=== PATIENT | female | born 1975 | race Two or more races ===

== ENCOUNTER 2017-03-18 19:37 | Inpatient (IN) | payer SELFPAY ==
[~2017-03-18] VITALS: Ht 165.1 cm; Wt 106.4 kg
[2017-03-18] MEDS ORDERED: NITROGLYCERIN SUBLINGUAL 0.4 MG BOTTLE OF 25. SL ONE (20:24)
[2017-03-18] MEDS ORDERED: IV NORMAL SALINE 1000ML BAG 1,000 ML IV SCH (20:30)
[2017-03-18] MEDS ORDERED: fentaNYL PF VIAL 100 MCG/2 ML VIAL IV PRN ×2 (20:30→21:00)
[2017-03-18] MEDS ORDERED: NITROGLYCERIN SUBLINGUAL 0.4 MG BOTTLE OF 25. SL PRN (20:30)
[2017-03-18 20:37] LABS: BASO % 0 % (0-3); EOS % 2 % (0-3); HEMATOCRIT 39.9 % (36.0-47.0); LYMPH # 3.9 x10^3/uL (1.0-4.8); LYMPH % 33 % (24-48); MEAN CORPUSCULAR HEMOGLOBIN 28 pg (25-35); MEAN CORPUSCULAR HGB CONC 33 g/dL (31-37); MEAN CORPUSCULAR VOLUME 85 fL (79-100); MONO % 5 % (0-9); NEUT % 60 % (31-73); PLATELET COUNT 257 x10^3/uL (140-400); RED BLOOD COUNT 4.71 x10^6/uL (3.50-5.40); RED CELL DISTRIBUTION WIDTH 14.4 % (11.5-14.5); WHITE BLOOD COUNT 11.8 x10^3/uL (4.0-11.0)
--- NOTE | 2017-03-18 20:43 | PHYS DOC ---
Past Medical History Past Medical History: Diabetes-Type II, Other Additional Past Medical Histor: "heart is weak", but hasnt f/u with clinic in ; "head always hurts a lot" Past Surgical History: Additional Past Surgical Histo: R inguinal hernia Alcohol Use: None Drug Use: None Adult General Chief Complaint Chief Complaint: CHEST PAIN HPI HPI Patient is a 41 year old female who presents with complaint of chest pain. Patient states that she has had symptoms off and on over the past few days but started having persistent symptoms approximately 1 hour ago prior to arrival. Patient describes the pain currently as squeezing and pressure in the middle of her chest. Patient also states that she is having pain along the left side of her neck. Patient has history of type 2 diabetes mellitus. Patient states that she had been evaluated one year ago at the doctor's office in [place] though she is unable to remember where she was seen. She states that she was told that she had "heart problems" but states that she did not follow-up as she was instructed to have this checked. Patient denies any fevers, diaphoresis, or shortness of breath. Patient admits to family history of myocardial infarction, stating her mother had a heart attack at the age of 42. The patient has not taken any medications to help with her symptoms at this time. Patient states that she has had associated increase in fatigue over the past several months and does not know what has caused this. Review of Systems Review of Systems Constitutional: Denies fever or chills [] Eyes: Denies change in visual acuity, redness, or eye pain [] HENT: Denies nasal congestion or sore throat [] Respiratory: Denies cough or shortness of breath [] Cardiovascular: Chest pain[] GI: Denies abdominal pain, nausea, vomiting, bloody stools or diarrhea [] : Denies dysuria or hematuria [] Musculoskeletal: Denies back pain or joint pain [] Integument: Denies rash or skin lesions [] Neurologic: Denies headache, focal weakness or sensory changes [] Current Medications Current Medications Current Medications Medications (Trade) Dose Ordered Sig/Ja Start Time Stop Time Status Last Admin Dose Admin Aspirin (Children'S Aspirin) 324 mg 1X ONCE 03/18/17 21:00 03/18/17 21:01 03/18/17 20:25 324 MG Fentanyl Citrate (Fentanyl 2ml Vial) 50 mcg PRN Q15MIN PRN 03/18/17 20:30 03/19/17 20:29 Nitroglycerin (Nitrostat) 0.4 mg PRN Q5MIN PRN 03/18/17 20:30 03/19/17 20:29 Sodium Chloride 1,000 ml @ 100 mls/hr Q10H 03/18/17 20:30 03/19/17 06:29 03/18/17 20:49 100 MLS/HR Allergies Allergies Allergies Coded Allergies Type Severity Reaction Last Updated Verified No Known Drug Allergies 03/18/17 No Physical Exam Physical Exam Constitutional: Alert, obese, afebrile, appears in mild to moderate discomfort. [] HENT: Normocephalic, atraumatic, bilateral external ears normal, oropharynx moist, no oral exudates, nose normal. [] Eyes: PERRLA, EOMI, conjunctiva normal, no discharge. [] Neck: Normal range of motion, no tenderness, supple, no stridor. [] Cardiovascular:Heart rate regular rhythm, no murmur [] Lungs & Thorax: Bilateral breath sounds clear to auscultation [] Abdomen: Bowel sounds normal, soft, no tenderness, no masses, no pulsatile masses. [] Skin: Warm, dry, no erythema, no rash. [] Back: No tenderness, no CVA tenderness. [] Extremities: No tenderness, no cyanosis, no clubbing, ROM intact, no edema. [] Neurologic: Alert and oriented X 3, normal motor function, normal sensory function, no focal deficits noted. [] Current Patient Data Vital Signs Vital Signs Date Time Temp Pulse Resp B/P (MAP) Pulse Ox O2 Delivery O2 Flow Rate FiO2 03/18/17 20:01 66 17 146/69 (94) Room Air 03/18/17 19:47 98.4 98 98.4 Lab Values Laboratory Tests Test 03/18/17 20:10 03/18/17 20:32 White Blood Count 11.8 x10^3/uL (4.0-11.0) H Red Blood Count 4.71 x10^6/uL (3.50-5.40) Hemoglobin 13.0 g/dL (12.0-15.5) Hematocrit 39.9 % (36.0-47.0) Mean Corpuscular Volume 85 fL (79-100) Mean Corpuscular Hemoglobin 28 pg (25-35) Mean Corpuscular Hemoglobin Concent 33 g/dL (31-37) Red Cell Distribution Width 14.4 % (11.5-14.5) Platelet Count 257 x10^3/uL (140-400) Neutrophils (%) (Auto) 60 % (31-73) Lymphocytes (%) (Auto) 33 % (24-48) Monocytes (%) (Auto) 5 % (0-9) Eosinophils (%) (Auto) 2 % (0-3) Basophils (%) (Auto) 0 % (0-3) Neutrophils # (Auto) 7.1 x10^3uL (1.8-7.7) Lymphocytes # (Auto) 3.9 x10^3/uL (1.0-4.8) Monocytes # (Auto) 0.6 x10^3/uL (0.0-1.1) Eosinophils # (Auto) 0.2 x10^3/uL (0.0-0.7) Basophils # (Auto) 0.0 x10^3/uL (0.0-0.2) Sodium Level 137 mmol/L (136-145) Potassium Level 4.1 mmol/L (3.5-5.1) Chloride Level 98 mmol/L (98-107) Carbon Dioxide Level 33 mmol/L (21-32) H Anion Gap 6 (6-14) 15 mmol/L (6-14) H Blood Urea Nitrogen 17 mg/dL (7-20) Creatinine 0.7 mg/dL (0.6-1.0) Estimated GFR (Cockcroft-Gault) 91.3 BUN/Creatinine Ratio 24 (6-20) H Glucose Level 226 mg/dL (70-99) H 224 mg/dL (70-99) H Calcium Level 9.5 mg/dL (8.5-10.1) Magnesium Level 2.1 mg/dL (1.8-2.4) Total Bilirubin 0.7 mg/dL (0.2-1.0) Aspartate Amino Transferase (AST) 66 U/L (15-37) H Alanine Aminotransferase (ALT) 95 U/L (14-59) H Alkaline Phosphatase 116 U/L (46-116) Total Protein 7.5 g/dL (6.4-8.2) Albumin 3.6 g/dL (3.4-5.0) Albumin/Globulin Ratio 0.9 (1.0-1.7) L POC Hemoglobin 13.9 g/dL (12-15) POC Hematocrit 41 % (36-40) H POC Sodium 138 mmol/L (135-145) POC Potassium 3.9 mmol/L (3.5-5.0) POC Chloride 97 mmol/L (98-110) L POC Total CO2 31 mmol/L (23-32) POC Blood Urea Nitrogen 16 mg/dL (8-26) POC Creatinine 0.8 mg/dL (0.5-1.4) POC Ionized Calcium (Doyle) 1.19 mmol/L (1.13-1.32) Laboratory Tests 03/18/17 20:10 Laboratory Tests 03/18/17 20:10 03/18/17 20:32 EKG EKG Interpreted by me: Heart rate 71, sinus rhythm, leftward axis, no acute ST/T- wave abnormalities present[] Radiology/Procedures Radiology/Procedures One view AP chest x-ray interpreted by me: No infiltrates, no effusions, normal cardiac silhouette.[] Course & Med Decision Making Course & Med Decision Making Pertinent Labs and Imaging studies reviewed. (See chart for details) Heart score is 4. The patient was treated with aspirin and given nitroglycerin with improvement in pain. The patient carries a moderate risk for acute cardiac event and will need admission to the hospital for further workup. I spoke with Dr. Wang who accepted care patient in hospital. A consult was placed to Dr. Varghese of cardiology to follow patient in hospital. Dragon Disclaimer Dragon Disclaimer This electronic medical record was generated, in whole or in part, using a voice recognition dictation system. 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
[2017-03-18 20:45] LABS: POTASSIUM ISTAT 3.9 mmol/L (3.5-5.0)
[2017-03-18 20:51] LABS: ALBUMIN 3.6 g/dL (3.4-5.0); ALBUMIN/GLOBULIN RATIO 0.9 (1.0-1.7); CALCIUM 9.5 mg/dL (8.5-10.1); CREATININE 0.7 mg/dL (0.6-1.0); GFR 91.3; POTASSIUM 4.1 mmol/L (3.5-5.1); TOTAL BILIRUBIN 0.7 mg/dL (0.2-1.0); TOTAL PROTEIN 7.5 g/dL (6.4-8.2)
[2017-03-18] MEDS: IV NORMAL SALINE 1000ML BAG 1,000 ML IV SCH (20:57)
[2017-03-18] MEDS ORDERED: ONDANSETRON PF 4 MG/2 ML VIAL. IV PRN (21:00)
[2017-03-18] MEDS ORDERED: ASPIRIN CHEWABLE 81 MG TABLET. PO ONE (21:00)
[2017-03-18 21:04] LABS: CREATINE KINASE 73 U/L (26-192)
[2017-03-18 21:05] LABS: CKMB MASS < 0.5 ng/mL (0.0-3.6)
[2017-03-18 22:02] LABS: BILIRUBIN,URINE NEGATIVE (NEG); GLUCOSE,URINE 250 mg/dL (NEG); NITRITE,URINE NEGATIVE (NEG); PROTEIN,URINE NEGATIVE (NEG-TRACE)
[2017-03-18 22:08] LABS: BACTERIA,URINE 0 /HPF (0-FEW); RBC,URINE OCC /HPF (0-2); SQUAMOUS EPITHELIAL CELL,UR MOD /LPF
[2017-03-18 22:30] VITALS: BP 130/65
[2017-03-19 03:00] VITALS: BP 114/56
[2017-03-19] MEDS: IV NORMAL SALINE 1000ML BAG 1,000 ML IV SCH (03:47)
[2017-03-19 05:16] LABS: BASO % 0 % (0-3); EOS % 2 % (0-3); HEMATOCRIT 37.6 % (36.0-47.0); HEMOGLOBIN 12.5 g/dL (12.0-15.5); LYMPH # 4.4 x10^3/uL (1.0-4.8); LYMPH % 38 % (24-48); MEAN CORPUSCULAR HEMOGLOBIN 28 pg (25-35); MEAN CORPUSCULAR HGB CONC 33 g/dL (31-37); MEAN CORPUSCULAR VOLUME 84 fL (79-100); MONO % 6 % (0-9); NEUT % 54 % (31-73); PLATELET COUNT 233 x10^3/uL (140-400); RED BLOOD COUNT 4.45 x10^6/uL (3.50-5.40); RED CELL DISTRIBUTION WIDTH 14.5 % (11.5-14.5); WHITE BLOOD COUNT 11.6 x10^3/uL (4.0-11.0)
[2017-03-19 05:58] LABS: CALCIUM 9.2 mg/dL (8.5-10.1); CREATININE 0.6 mg/dL (0.6-1.0); GFR 109.1; POTASSIUM 3.5 mmol/L (3.5-5.1)
[2017-03-19 07:30] VITALS: BP 139/67
--- NOTE | 2017-03-19 07:52 | PDOC2 ---
ELLA CHILD ARTIST AGENT 03/19/17 0752: CARDIAC CONSULT DATE OF CONSULT Date of Consult DATE: 03/19/17 TIME: 07:50 REASON FOR CONSULT Reason for Consult: Chest pain REFERRING PHYSICIAN Referring Physician: Dr. Mcbride SOURCE Source: Chart review, Patient HISTORY OF PRESENT ILLNESS HISTORY OF PRESENT ILLNESS This is a 41 yo female who presented with complaints of chest pain. Patient reports pain start yesterday evening while cooking. Located in her central chest. Describes as squeezing in nature. Associated with shortness of breath and nausea. Swan like she could faint so she came into the ED for further evaluation and treatment. Denies any palpitations, dizziness, or diaphoresis. Pain worsened by pressing on her central chest. Resolved upon arrival with no occurrence overnight. Does have a history of HTN and diabetes, although she does not take any medications or check her blood sugars. Troponin series normal-AMI ruled out. EKG without significant acute changes. BS noted in the 200 range. PAST MEDICAL HISTORY Cardiovascular: HTN Pulmonary: No pertinent hx GI: GERD Heme/Onc: No pertinent hx Hepatobiliary: No pertinent hx Psych: No pertinent hx Rheumatologic: No pertinent hx Infectious disease: No pertinent hx ENT: No pertinent hx Renal/: No pertinent hx Endocrine: Diabetes Dermatology: No pertinent hx PAST SURGICAL HISTORY Past Surgical History: Hernia Repair FAMILY HISTORY Family History: Hypertension, Other (grandmother with a "sick heart") SOCIAL HISTORY Smoke: No ALCOHOL: none Drugs: None Lives: with Family CURRENT MEDICATIONS CURRENT MEDICATIONS Current Medications Medications (Trade) Dose Ordered Sig/Ja Route PRN Reason Start Time Stop Time Status Last Admin Dose Admin Aspirin (Children'S Aspirin) 324 mg 1X ONCE PO 03/18/17 21:00 03/18/17 21:01 DC 03/18/17 20:25 Sodium Chloride 1,000 ml @ 100 mls/hr Q10H IV 03/18/17 20:30 03/19/17 06:29 DC 03/18/17 20:49 Sodium Chloride 1,000 ml @ 125 mls/hr Q8H IV 03/18/17 20:57 03/19/17 20:56 03/19/17 03:47 ALLERGIES ALLERGIES: Coded Allergies: No Known Drug Allergies (Unverified , 03/18/17) ROS Review of System 14 point ROS conducted with pertinent positives noted above in HPI. PHYSICAL EXAM General: Alert, Oriented X3, Cooperative, No acute distress HEENT: Atraumatic, Mucous membr. moist/pink Lungs: Other (central chest tenderness upon palpation) Heart: Regular rate, Normal S1, Normal S2, No murmurs Abdomen: Soft, No tenderness Extremities: No edema, Normal pulses Skin: No significant lesion Neuro: Normal speech, Sensation intact Psych/Mental Status: Mental status NL, Mood NL MUSCULOSKELETAL: Full range of motion without pain VITALS VITALS Vital Signs Date Time Temp Pulse Resp B/P (MAP) Pulse Ox O2 Delivery O2 Flow Rate FiO2 03/19/17 03:00 98.4 64 18 114/56 (75) 97 Room Air 98.4 LABS Lab: Laboratory Tests Test 03/18/17 20:10 03/18/17 20:32 03/18/17 21:52 03/18/17 23:04 White Blood Count 11.8 x10^3/uL (4.0-11.0) Red Blood Count 4.71 x10^6/uL (3.50-5.40) Hemoglobin 13.0 g/dL (12.0-15.5) Hematocrit 39.9 % (36.0-47.0) Mean Corpuscular Volume 85 fL (79-100) Mean Corpuscular Hemoglobin 28 pg (25-35) Mean Corpuscular Hemoglobin Concent 33 g/dL (31-37) Red Cell Distribution Width 14.4 % (11.5-14.5) Platelet Count 257 x10^3/uL (140-400) Neutrophils (%) (Auto) 60 % (31-73) Lymphocytes (%) (Auto) 33 % (24-48) Monocytes (%) (Auto) 5 % (0-9) Eosinophils (%) (Auto) 2 % (0-3) Basophils (%) (Auto) 0 % (0-3) Neutrophils # (Auto) 7.1 x10^3uL (1.8-7.7) Lymphocytes # (Auto) 3.9 x10^3/uL (1.0-4.8) Monocytes # (Auto) 0.6 x10^3/uL (0.0-1.1) Eosinophils # (Auto) 0.2 x10^3/uL (0.0-0.7) Basophils # (Auto) 0.0 x10^3/uL (0.0-0.2) Sodium Level 137 mmol/L (136-145) Potassium Level 4.1 mmol/L (3.5-5.1) Chloride Level 98 mmol/L (98-107) Carbon Dioxide Level 33 mmol/L (21-32) Anion Gap 6 (6-14) 15 mmol/L (6-14) Blood Urea Nitrogen 17 mg/dL (7-20) Creatinine 0.7 mg/dL (0.6-1.0) Estimated GFR (Cockcroft-Gault) 91.3 BUN/Creatinine Ratio 24 (6-20) Glucose Level 226 mg/dL (70-99) 224 mg/dL (70-99) Calcium Level 9.5 mg/dL (8.5-10.1) Magnesium Level 2.1 mg/dL (1.8-2.4) Total Bilirubin 0.7 mg/dL (0.2-1.0) Aspartate Amino Transf (AST/SGOT) 66 U/L (15-37) Alanine Aminotransferase (ALT/SGPT) 95 U/L (14-59) Alkaline Phosphatase 116 U/L (46-116) Creatine Kinase 73 U/L (26-192) Creatine Kinase MB (Mass) < 0.5 ng/mL (0.0-3.6) Creatine Kinase MB Relative Index % (0-4) Troponin I Quantitative < 0.017 ng/mL (0.000-0.055) RL-Jyg-H-Type Natriuretic Peptide 15 pg/mL (0-124) Total Protein 7.5 g/dL (6.4-8.2) Albumin 3.6 g/dL (3.4-5.0) Albumin/Globulin Ratio 0.9 (1.0-1.7) Bedside Hemoglobin 13.9 g/dL (12-15) Bedside Hematocrit 41 % (36-40) Bedside Sodium 138 mmol/L (135-145) Bedside Potassium 3.9 mmol/L (3.5-5.0) Bedside Chloride 97 mmol/L (98-110) Bedside Total CO2 31 mmol/L (23-32) Bedside Blood Urea Nitrogen 16 mg/dL (8-26) Bedside Creatinine 0.8 mg/dL (0.5-1.4) Bedside Ionized Calcium (Doyle) 1.19 mmol/L (1.13-1.32) Urine Collection Type Unknown Urine Color Yellow Urine Clarity Cloudy Urine pH 7.0 Urine Specific [place] 1.020 Urine Protein Negative mg/dL (NEG-TRACE) Urine Glucose (UA) 250 mg/dL (NEG) Urine Ketones (Stick) Negative mg/dL (NEG) Urine Blood Negative (NEG) Urine Nitrite Negative (NEG) Urine Bilirubin Negative (NEG) Urine Urobilinogen Dipstick 1.0 mg/dL (0.2 mg/dL) Urine Leukocyte Esterase Moderate (NEG) Urine RBC Occ /HPF (0-2) Urine WBC 5-10 /HPF (0-4) Urine Squamous Epithelial Cells Mod /LPF Urine Amorphous Sediment Present /HPF Urine Bacteria 0 /HPF (0-FEW) Glucose (Fingerstick) 222 mg/dL (70-99) Test 03/18/17 23:30 03/19/17 03:00 Troponin I Quantitative < 0.017 ng/mL (0.000-0.055) < 0.017 ng/mL (0.000-0.055) White Blood Count 11.6 x10^3/uL (4.0-11.0) Red Blood Count 4.45 x10^6/uL (3.50-5.40) Hemoglobin 12.5 g/dL (12.0-15.5) Hematocrit 37.6 % (36.0-47.0) Mean Corpuscular Volume 84 fL (79-100) Mean Corpuscular Hemoglobin 28 pg (25-35) Mean Corpuscular Hemoglobin Concent 33 g/dL (31-37) Red Cell Distribution Width 14.5 % (11.5-14.5) Platelet Count 233 x10^3/uL (140-400) Neutrophils (%) (Auto) 54 % (31-73) Lymphocytes (%) (Auto) 38 % (24-48) Monocytes (%) (Auto) 6 % (0-9) Eosinophils (%) (Auto) 2 % (0-3) Basophils (%) (Auto) 0 % (0-3) Neutrophils # (Auto) 6.3 x10^3uL (1.8-7.7) Lymphocytes # (Auto) 4.4 x10^3/uL (1.0-4.8) Monocytes # (Auto) 0.7 x10^3/uL (0.0-1.1) Eosinophils # (Auto) 0.2 x10^3/uL (0.0-0.7) Basophils # (Auto) 0.0 x10^3/uL (0.0-0.2) Sodium Level 138 mmol/L (136-145) Potassium Level 3.5 mmol/L (3.5-5.1) Chloride Level 100 mmol/L (98-107) Carbon Dioxide Level 26 mmol/L (21-32) Anion Gap 12 (6-14) Blood Urea Nitrogen 17 mg/dL (7-20) Creatinine 0.6 mg/dL (0.6-1.0) Estimated GFR (Cockcroft-Gault) 109.1 Glucose Level 190 mg/dL (70-99) Calcium Level 9.2 mg/dL (8.5-10.1) ASSESSMENT/PLAN ASSESSMENT/PLAN 1. Chest pain, with atypical features. Most probably MSK in origin as it is reproducible with palpation 2. Accelerated hypertension, POA. BP now well-controlled despite no antiHTN therapy. 3. Diabetes Recommendations Check lipids- statin if indicated Given risk factors, recommend outpatient follow up in 2-3 weeks with consideration ischemic workup at that time. Instructed to check BP daily and bring record to office f/u Management of diabetes as per PCP Problems: BENEDICT FIELDS MD 03/20/17 0106: CARDIAC CONSULT ALLERGIES ALLERGIES: Coded Allergies: No Known Drug Allergies (Unverified , 03/18/17) ASSESSMENT/PLAN ASSESSMENT/PLAN Pt. seen and examined. Agree with above PERSONAL FITNESS MANAGER note. Thanks for consultation. Discussed with Dr. Mcbride. Problems: ELLA CHILD APRN Mar 19, 2017 07:52 BENEDICT FIELDS MD Mar 20, 2017 01:06
[2017-03-19 08:53] LABS: CHOLESTEROL/HDL RATIO 4.7
[2017-03-19] MEDS ORDERED: FLU VACC QS2017-18 (36MOS+)/PF 0.5 ML SYRINGE. VAX IM ONE (09:00)
[2017-03-19] MEDS ORDERED: PNEUMOC CONJ VACC 23-VALENT 0.5 ML VIAL. VAX IM ONE (09:00)
--- NOTE | 2017-03-19 09:43 | RAD ---
PORTABLE CHEST 1V Clinical Indication: chest pain Comparison: None. Findings: Low lung volume. No focal consolidation. Normal pulmonary vasculature. No pleural effusion or pneumothorax. Borderline cardiomegaly. The great vessels of the thorax are normal. No acute osseous abnormality. IMPRESSION: 1. No focal consolidation. 2. Borderline cardiomegaly.
--- NOTE | 2017-03-19 11:18 | EKG ---
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
[2017-03-19 11:39] VITALS: BP 126/81
--- NOTE | 2017-03-21 07:09 | SSS ---
ADMIT DATE: 03/19/2017 CHIEF COMPLAINT: Chest pain. HISTORY OF PRESENT ILLNESS: The patient is a pleasant middle-aged female presented with chest pain, rates it 7/10. She has associated weakness, worse with moving, better with sitting still. We admitted the patient. We will consult Cardiology. They feel like this is probably atypical chest pain. We certainly agree we are going to discharge the patient with close outpatient followup. PAST MEDICAL HISTORY: Diabetes, and right inguinal hernia. ALLERGIES: None. FAMILY HISTORY: Diabetes. SOCIAL HISTORY: She does not drink, smoke or take drugs. MEDICATIONS: Reviewed. REVIEW OF SYSTEMS: GENERAL: No history of weight change, weakness or fevers. SKIN: No bruising, hair changes or rashes. EYES: No blurred, double or loss of vision. NOSE AND THROAT: No history of nosebleeds, hoarseness or sore throat. HEART: No history of palpitations, chest pain or shortness of breath on exertion. LUNGS: Denies cough, hemoptysis, wheezing or shortness of breath. GASTROINTESTINAL: Denies changes in appetite, nausea, vomiting, diarrhea or constipation. GENITOURINARY: No history of frequency, urgency, hesitancy or nocturia. NEUROLOGIC: Denies history of numbness, tingling, tremor or weakness. PSYCHIATRIC: No history of panic, anxiety or depression. ENDOCRINE: No history of heat or cold intolerance, polyuria or polydipsia. EXTREMITIES: Denies muscle weakness, joint pain, pain on walking or stiffness. PHYSICAL EXAMINATION: VITAL SIGNS: Temperature afebrile, pulse 92, respirations 18 and blood pressure 144/60. GENERAL: She is alert and cooperative. HEART: Normal S1 and S2. LUNGS: Clear. ABDOMEN: Soft. EXTREMITIES: No edema. SKIN: No rashes. PSYCHIATRIC: She is stable. VASCULAR: Good capillary refill. ENDOCRINE: No thyromegaly. LYMPHATICS: No cervical nodes. HEMATOPOIETIC: No bruising. LABORATORY DATA: Hematology is normal. Electrolytes are normal. Troponin is 0. ASSESSMENT AND PLAN: Atypical chest pain. We will go ahead and discharge with close outpatient followup. DISPOSITION: Home. ACTIVITY: As tolerated. DIET: Low sodium. MEDICATIONS: Please see MRAD. TOTAL TIME: Thirty-one minutes. NIAL K. CASTLE, DO DR: LILLY/john JOB#: [id number] / [id number]
== END 2017-03-19 14:24 | disposition home or self-care (01) | DRG 313 ==
LOC: ER 19:37 → 5 NORTH 20:29
PROVIDERS: ADMIT Internal Medicine; ATTEND Internal Medicine
DX: R07.89 Other chest pain (principal); E11.65 Type 2 diabetes mellitus with hyperglycemia; E66.9 Obesity, unspecified; I10 Essential (primary) hypertension; K21.9 Gastro-esophageal reflux disease without esophagitis; Z82.49 Family history of ischemic heart disease and other diseases of the circulatory system; Z68.39 Body mass index [BMI] 39.0-39.9, adult; O34.219 Maternal care for unspecified type scar from previous cesarean delivery
CPT/HCPCS: 36415; 71010; 80047; 80048; 80053; 80061; 81001; 82553; 82962; 83735; 83880; 84484; 85025; 87086; 90686; 90732; 93005; J7030; 99285-25